=== PATIENT | male | born 1985 | race African-American/Black ===

== ENCOUNTER 2016-06-16 18:24 | Emergency (ER) | payer OTHER ==
[~2016-06-16] VITALS: Ht 185.4 cm; Wt 93.4 kg
[~2016-06-16 18:24] MED LIST: GOOD SENSE IBU200 MG PO; NAPROSYN500 M1 PO; ZOFRAN4 M1 SL
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
[2016-06-16] MEDS ORDERED: IBUPROFEN800 M1 PO (19:44)
[2016-06-16] MEDS ORDERED: CLINDAMYCIN HC300 M1 PO (19:44)
[2016-06-16 19:58] VITALS: BP 128/78
== END 2016-06-16 19:59 ==
LOC: ERH 18:24
DX: K08.89 Other specified disorders of teeth and supporting structures (principal)

== ENCOUNTER 2016-10-08 20:02 | Emergency (ER) | payer OTHER ==
[~2016-10-08] VITALS: Ht 185.4 cm; Wt 93.0 kg
[~2016-10-08 20:02] MED LIST changes: +CLINDAMYCIN HC300 M1 PO; +IBUPROFEN800 M1 PO
[2016-10-08 20:29] LABS: ABSOLUTE BASOPHIL COUNT 0.3 /CUMM (0.0-0.2); ABSOLUTE EOSINOPHIL COUNT 0.5 /CUMM (0.0-0.7); ABSOLUTE GRANULOCYTE CT 4.3 /CUMM (1.4-6.5); ABSOLUTE LYMPH COUNT 5.4 /CUMM (1.2-3.4); ABSOLUTE MONOCYTE COUNT 0.5 /CUMM (0.10-0.60); BASOPHIL % 2.5 % (0.0-2.0); EOSINOPHIL % 4.9 % (0-5); HEMATOCRIT 47.9 % (42-52); MEAN CORPUSCULAR HGB 29.8 PG (27.0-31.0); MEAN CORPUSCULAR HGB CONC 32.6 G/DL (33.0-37.0); MEAN CORPUSCULAR VOLUME 91.2 FL (80.0-94.0); MEAN PLATELET VOLUME 10.5 FL (7.4-10.4); PLATELET COUNT 254 /CUMM (130-400); RBC DISTRIBUTION WIDTH 13.2 % (11.5-14.5); RED BLOOD CELL CT 5.25 /CUMM (4.70-6.10); WHITE BLOOD CELL COUNT 11.1 /CUMM (4.8-10.8)
[2016-10-08 20:30] LABS: GRANULOCYTE % 39.1 % (42.2-75.2)
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
[2016-10-08] MEDS ORDERED: IBUPROFEN600 M1 PO (23:09)
[2016-10-08] MEDS ORDERED: ULTRAM50 M1 PO (23:10)
[2016-10-08 23:17] VITALS: BP 136/80
== END 2016-10-08 23:28 ==
LOC: ERH 20:02
PROVIDERS: Emergency Medicine
DX: S31.819A Unspecified open wound of right buttock, initial encounter (principal); W34.00XA Accidental discharge from unspecified firearms or gun, initial encounter; Y92.9 Unspecified place or not applicable; Y93.9 Activity, unspecified
CPT/HCPCS: 72170; 74177; 90471; 90714; 96374; J1885